=== PATIENT | male | born 1960 | race Caucasian/White ===

== ENCOUNTER 2016-06-16 11:24 | Day surgery (SDC) | payer OTHER ==
[~2016-06-16 11:24] MED LIST: AMBIEN10 M1 PO; ATIVAN1 M2 PO; CATAFLAM50 MG PO; CILOXAN5 ML OP; FLEXERIL10 MG PO; HYDROCODONE PO; LORTAB ELIXIR480 ML PO; MULTI VITAMIN1 EAC2 PO; NORCO 10/325 TA1 TAB PO; OMEPRAZOLE40 M2 PO; PRILOSEC20 MG; TRAZODONE HCL150 M1 PO; VITAMIN C500 M3 PO; ZANAFLEX4 M PO; ZOLOFT100 M1 PO; ZYRTEC10 M7 PO
[2016-06-16 12:21] LABS: BASO % 0.4 % (0-2); EOS % 2.4 % (0-7); EOSINOPHIL ABSOLUTE COUNT 0.1 tho/cmm (0.0-0.7); HCT-HEMATOCRIT 39.9 % (36.0-53.5); HGB-HEMOGLOBIN 13.9 gm/dl (13.5-17.0); IMMATURE GRANULOCYTES ABSOLUTE 0.01 tho/cmm (0-0.03); IMMATURE GRANULOCYTES PERCENT 0.2 % (0-0.3); LYMPH % 27.8 % (20-45); LYMPH ABSOLUTE COUNT 1.3 tho/cmm (0.8-4.5); MCH (MEAN CORPUSCULAR HGB) 32.4 pg (28.0-32.0); MCHC MEAN CORPUSCULAR HGB CONC 34.8 % (32.0-36.0); MEAN PLATELET VOLUME 9.1 cmc (9.4-12.4); MONO % 11.6 % (0-12); MONOCYTE ABSOLUTE COUNT 0.5 tho/cmm (0.0-1.2); NEUTROPHIL ABSOLUTE COUNT 2.6 tho/cmm (1.6-8.0); NEUTROPHIL-AUTOMATED 2.6 tho/cmm (1.6-8.0); NEUTROPHILS % 57.6 % (40-80); PLATELET COUNT 127 tho/cmm (150-450); RED BLOOD COUNT 4.29 mil/cmm (4.40-5.70); RED CELL DISTRIBUTION WIDTH 14.3 % (12.4-16.4); WHITE BLOOD COUNT 4.5 tho/cmm (4.0-10.0)
== END 2016-06-16 16:15 ==
LOC: SRG 11:24 → SHSB 11:25 → ORE 12:39 → PACU 13:49 → SHSB 15:10
PROVIDERS: Student in an Organized Health Care Education/Training Program
PROC: 09SM0ZZ Reposition Nasal Septum, Open Approach (ICD-10-PCS; principal; 2016-06-16)
PROC: 097G4ZZ Dilation of Left Eustachian Tube, Percutaneous Endoscopic Approach (ICD-10-PCS; 2016-06-16)
PROC: 097F4ZZ Dilation of Right Eustachian Tube, Percutaneous Endoscopic Approach (ICD-10-PCS; 2016-06-16)
DX: H69.83 Other specified disorders of Eustachian tube, bilateral (principal); J34.89 Other specified disorders of nose and nasal sinuses; F41.9 Anxiety disorder, unspecified; K21.9 Gastro-esophageal reflux disease without esophagitis; F17.220 Nicotine dependence, chewing tobacco, uncomplicated; F10.21 Alcohol dependence, in remission; Z79.899 Other long term (current) drug therapy; Z88.1 Allergy status to other antibiotic agents; Z91.030 Bee allergy status; Z91.038 Other insect allergy status; Z87.442 Personal history of urinary calculi; Z90.89 Acquired absence of other organs; Z98.890 Other specified postprocedural states
CPT/HCPCS: C1726; J0171; J1170; J2270